=== PATIENT | male | born 1990 | race Caucasian/White ===

== ENCOUNTER 2016-09-15 22:02 | Emergency (ER) | payer SELFPAY ==
[~2016-09-15] VITALS: Ht 177.8 cm; Wt 72.6 kg
[2016-09-15 23:15] VITALS: BP 141/67
[2016-09-16 00:22] LABS: BASO # 0.1 x10^3/uL (0.0-0.2); BASO % 1 % (0-3); EOS # 0.1 x10^3/uL (0.0-0.7); EOS % 1 % (0-3); HEMATOCRIT 46.4 % (39.0-53.0); HEMOGLOBIN 15.9 g/dL (13.0-17.5); LYMPH # 3.1 x10^3/uL (1.0-4.8); LYMPH % 29 % (24-48); MEAN CORPUSCULAR HEMOGLOBIN 30 pg (25-35); MEAN CORPUSCULAR HGB CONC 34 g/dL (31-37); MEAN CORPUSCULAR VOLUME 88 fL (79-100); MONO # 1.1 x10^3/uL (0.0-1.1); MONO % 10 % (0-9); NEUT # 6.3 x10^3uL (1.8-7.7); NEUT % 59 % (31-73); PLATELET COUNT 225 x10^3/uL (140-400); RED BLOOD COUNT 5.26 x10^6/uL (4.30-5.70); RED CELL DISTRIBUTION WIDTH 12.5 % (11.5-14.5); WHITE BLOOD COUNT 10.7 x10^3/uL (4.0-11.0)
[2016-09-16 00:26] LABS: CALCIUM 8.8 mg/dL (8.5-10.1); GFR 91.8
--- NOTE | 2016-09-16 00:31 | RAD ---
PROCEDURE CT maxillofacial without contrast HISTORY Severe right-sided jaw pain TECHNIQUE Axial helical images were obtained of the face including the paranasal sinuses orbits and mandible and axial coronal sagittal reconstruction was performed. FINDINGS The nasal septum is minimally deviated to the right. The ostiomeatal complexes are narrow but patent. There is near opacification of the right frontal sinus. There is mild mucoperiosteal thickening posteriorly in the sphenoid sinus. The visualized osseous structures appear normal. IMPRESSION Chronic sinus disease. No acute findings. Electronically signed by: Crispin Vila MD (September 16, 2016 00:30:10)
--- NOTE | 2016-09-16 00:46 | PHYS DOC ---
General Chief Complaint: FACE PAIN Stated Complaint: JAW PAIN Time Seen by MD: 22:18 Source: patient Exam Limitations: no limitations Problems: History of Present Illness Initial Comments Pt is 25/M to ED c/o TMJ pain. Pt states he has long h/o jaw popping, two days ago states it popped "4 times in a row." Since then pt with b/l TMJ pain R>L, states behind his jaw swollen red. No dysphagia/sob/neck pain or stiffness, no trauma. No prearrival treatment, no other associated sx. Timing/Duration: other (2 days) Severity: moderate Location: other Prearrival Treatment: over the counter meds Modifying Factors: worse with coughing, improves with rest Associated Symptoms: other Allergies: Coded Allergies: Sulfa (Sulfonamide Antibiotics) (Verified Allergy, Intermediate, 09/16/16) Past Medical History Medical History: no pertinent history Surgical History: noncontributory Social History Smoker: cigarettes Alcohol: none Drugs: none Constitutional: denies chills, denies fever Eyes: denies blurred vision, denies drainage, denies decreased acuity Ears: denies dizziness, denies pain, denies tinnitus Nose: denies clots, denies congestion, denies epistaxis Mouth: see HPI, denies loose teeth, denies bloody discharge, denies clear discharge Throat: denies pain, denies swelling, denies neck stiffness Respiratory: denies cough, denies shortness of breath Cardiovascular: denies chest pain, denies palpitations Gastrointestinal: denies diarrhea, denies nausea, denies vomiting Musculoskeletal: see HPI, denies back pain, denies neck pain Neurological: denies headache, denies numbness, denies paresthesia Physical Exam General Appearance: WD/WN, no apparent distress Eyes: bilateral eye normal inspection, bilateral eye PERRL, bilateral eye EOMI Ears: bilateral ear auricle normal, bilateral ear canal normal, bilateral ear TM normal Nose: normal inspection Mouth/Throat: other (b/l TMJ TTP, opens to 3 cm w/click, mild swelling R side no fluctuance/erythema/skin breaks/palpable bony abnormality) Neck: supple, trachea midline Cardiovascular/Respiratory: normal peripheral pulses, normal breath sounds Neurologic/Psychiatric: 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 PHYSICIAN: LAUREN KNAPP DO REASON: chronic TMJ dysfxn, 2 days right jaw pain/swelling PROCEDURE: CT MAXILLOFACIAL WO CONTRAST PROCEDURE CT maxillofacial without contrast HISTORY Severe right-sided jaw pain TECHNIQUE Axial helical images were obtained of the face including the paranasal sinuses orbits and mandible and axial coronal sagittal reconstruction was performed. FINDINGS The nasal septum is minimally deviated to the right. The ostiomeatal complexes are narrow but patent. There is near opacification of the right frontal sinus. There is mild mucoperiosteal thickening posteriorly in the sphenoid sinus. The visualized osseous structures appear normal. IMPRESSION Chronic sinus disease. No acute findings. Electronically signed by: Crispin Painting MD (September 16, 2016 00:30:10) DICTATED AND SIGNED BY: CIRSPIN PAINTING III, MD DATE: 09/16/16 0030 CC: PCP,NO; LAUREN KNAPP DO ~ Labs reassuring Departure Time of Disposition: 00:41 Disposition: 01 HOME, SELF-CARE Diagnosis: TMJ Arthropathy, Chronic sinusitis, tobaccoism Condition: GOOD Patient Instructions: Sinusitis, [id number], Smoking Cessation, Temporomandibular Joint Pain-Brief Additional Instructions: No opening mouth greater than 2 cm for one week. No gum chewing, choose a diet this week consisting of foods which require very little jaw/chewing effort. Ice to painful areas 20 minutes, 4-6 times daily for 2-3 days. If no new injury , after 3 days change to heat pad 15-20 minutes 4 times daily. Stop smoking, seek medical assistance if necessary. Rx: amoxicillin, naprosyn, cyclobenzaprine, diazepam 5mg #5 No driving or operating machinery while sedated on meds. You will need to follow up with a specialist for further evaluation and likely for an oral appliance. You may follow up with your dentist or obtain a referral from your primary care doctor to see oralmaxillofacial surgeon. Return to ED with new or changing symptoms. LAUREN KNAPP DO September 16, 2016 00:46
[2016-09-16] MEDS ORDERED: AMOX875T PO (00:49)
[2016-09-16] MEDS ORDERED: CYCL10TA2 PO (00:49)
[2016-09-16] MEDS ORDERED: DIAZ5TAB4 PO (00:49)
[2016-09-16] MEDS ORDERED: NAPR500T PO (00:49)
[2016-09-16] MEDS ORDERED: ONDANSETRON ODT 4 MG TAB.RAPDIS PO ONE (01:00)
[2016-09-16] MEDS ORDERED: HYDROCODON/IBUPROFEN 7.5/200MG TABLET. PO ONE (01:00)
== END 2016-09-16 01:00 | disposition home or self-care (01) ==
LOC: ER 22:08
DX: M12.88 Other specific arthropathies, not elsewhere classified, other specified site (principal); J32.9 Chronic sinusitis, unspecified; F17.200 Nicotine dependence, unspecified, uncomplicated; Z88.2 Allergy status to sulfonamides
CPT/HCPCS: 36415; 70486; 80048; 85027; 99285; Q0162

== ENCOUNTER 2021-01-27 04:20 | Emergency (ER) | payer SELFPAY ==
[~2021-01-27] VITALS: Ht 175.3 cm; Wt 68.0 kg
[~2021-01-27 04:20] MED LIST: AMOX875T PO; CYCL-331 PO; DIAZ5TAB4 PO; NAPR-683 PO
[2021-01-27 04:23] VITALS: BP 111/73
--- NOTE | 2021-01-27 04:42 | PHYS DOC ---
Past History Past Medical History: No Pertinent History Past Surgical History: No Surgical History Alcohol Use: None Drug Use: None General Adult EDM: Chief Complaint: SKIN RASH/ABSCESS HPI: HPI: "I.. got into some poison es.. I was clearing out a fence row..." " I am covered with the rash.. " Patient is a 30 year old male who presents with above hx and complaints exposure to poison es and now poison es type rash. Patient's contact dermatitis is now areas of exposed skin during his attempts to remove poison es along a fence row. Patient denies any history immunosuppression. No recent travel. No specific ill contacts. Does not remember his last tetanus. Patient does smoke. Patient has declined to get COVID vaccination. Review of Systems: Review of Systems: Constitutional: Denies fever or chills Eyes: Denies change in visual acuity HENT: Denies nasal congestion or sore throat Respiratory: Denies cough or shortness of breath Cardiovascular: Denies chest pain or edema GI: Denies abdominal pain, nausea, vomiting, bloody stools or diarrhea : Denies dysuria Musculoskeletal: Denies back pain or joint pain Integument: Extensive contact dermatitis Neurologic: Denies headache, focal weakness or sensory changes Endocrine: Denies polyuria or polydipsia Lymphatic: Denies swollen glands Psychiatric: Denies depression or anxiety Family History: Family History: Noncontributory to presentation Current Medications: Current Meds: See nursing for home meds Allergies: Allergies: Allergies Coded Allergies Type Severity Reaction Last Updated Verified Sulfa (Sulfonamide Antibiotics) Allergy Intermediate 09/16/16 Yes Physical Exam: PE: Constitutional: in acute distress, non-toxic appearance. [] HENT: Normocephalic, atraumatic, bilateral external ears normal, oropharynx moist, no oral exudates, nose normal. [] Eyes: PERRLA, EOMI, conjunctiva normal, no discharge. [] Neck: Normal range of motion, no tenderness, supple, no stridor. [] Cardiovascular:Heart rate regular rhythm, no murmur [] Lungs & Thorax: Bilateral breath sounds equal apex few scattered wheezes auscultation [] Abdomen: Bowel sounds normal, soft, no tenderness, no masses, no pulsatile masses. [] Skin: Warm, dry, no erythema, extensive contact dermatitis Back: No tenderness, no CVA tenderness. [] Extremities: No tenderness, no cyanosis, no clubbing, ROM intact, no edema. [] Neurologic: Alert and oriented X 3, normal motor function, normal sensory function, no focal deficits noted. [] Psychologic: Affect anxious, judgement normal, mood normal. [] Current Patient Data: Vital Signs: Vital Signs Date Time Temp Pulse Resp B/P (MAP) Pulse Ox O2 Delivery O2 Flow Rate FiO2 01/27/21 04:23 97.8 98 18 111/73 (86) 98 Room Air EKG: EKG: [] Radiology/Procedures: Radiology/Procedures: [] Heart Score: C/O Chest Pain: N/A Risk Factors: Risk Factors: DM, Current or recent (<one month) smoker, HTN, HLP, family history of CAD, obesity. Risk Scores: Score 0 - 3: 2.5% MACE over next 6 weeks - Discharge Home Score 4 - 6: 20.3% MACE over next 6 weeks - Admit for Clinical Observation Score 7 - 10: 72.7% MACE over next 6 weeks - Early Invasive Strategies Course & Med Decision Making: Course & Med Decision Making Pertinent Labs and Imaging studies reviewed. (See chart for details) Patient do oatmeal baths or salt water baths with salt or Epson salt 4 times a day. Patient after baths or compresses to apply Polysporin 4 times a day. Patient take prednisone taper 50 mg x 3 days, 40 mg x 3 days, 30 mg x 3 days, 20 mg x 3 days, 10 mg x 3 days, 5 mg x 4 days. Patient take Benadryl 25 to 50 mg 4 times a day for itching. Tylenol and ibuprofen may also be helpful for the discomfort. Follow-up primary care. Return if any concerns. Encourage patient to get COVID vaccination in over this acute contact dermatitis episode. Impression: 1. Contact dermatitis-history of poison es exposure 2. Tobacco use [] Dragon Disclaimer: Jarrod Disclaimer: This electronic medical record was generated, in whole or in part, using a voice recognition dictation system. Departure Departure: Referrals: PCP,NO (PCP) Scripts Prednisone (PREDNISONE) 50 Mg Tablet 10 MG PO taper for poison es, #50 TAB Prov: JOE PARISH MD 01/27/21 Jarrod Disclaimer This chart was dictated in whole or in part using Voice Recognition software in a busy, high-work load, and often noisy Emergency Department environment. It may contain unintended and wholly unrecognized errors or omissions. JOE PARISH MD Jan 27, 2021 04:42
[2021-01-27] MEDS ORDERED: PRED50TA PO (04:45)
[2021-01-27] MEDS ORDERED: diphenhydrAMINE HCL 25 MG CAPSULE PO ONE (04:45)
[2021-01-27] MEDS ORDERED: HYDROcodon/IBUPROFEN 7.5/200MG 1 TAB TABLET PO ONE (04:45)
[2021-01-27] MEDS ORDERED: DIPH,PERTUSS(ACELL),TET VAC/PF 0.5 ML SYRINGE. VAX IM ONE (04:45)
[2021-01-27] MEDS ORDERED: methylPREDNISolone ACETATE 40 MG/ML VIAL. IM ONE (04:45)
== END 2021-01-27 05:16 | disposition home or self-care (01) ==
LOC: ER 04:20
DX: L25.9 Unspecified contact dermatitis, unspecified cause (principal); Z72.0 Tobacco use; Z88.2 Allergy status to sulfonamides
CPT/HCPCS: 90471; 90715; 96372; 99284; J1030; Q0163